=== PATIENT | female | born 1935 | race Caucasian/White ===

== ENCOUNTER 2017-10-22 08:00 | Outpatient (CLI) | payer MEDICARE | END 2017-10-22 08:01 | disposition home or self-care (01) | LOC: BICMAMMO 08:00 | PROVIDERS: ATTEND Obstetrics & Gynecology | DX: Z12.31 Encounter for screening mammogram for malignant neoplasm of breast (principal) | CPT/HCPCS: 77063; G0202; 77067 ==

== ENCOUNTER 2017-12-30 09:02 | Day surgery (SDC) | payer MEDICARE, BC ==
[2017-12-29 10:49] VITALS: BMI 18.8
--- NOTE | 2017-12-29 23:00 | HP ---
DATE OF ADMISSION: 12/30/2017 HISTORY OF PRESENT ILLNESS: This is an 82-year-old female with chronic acid reflux for man y years. The patient comes for abdominal pain, abdominal bloating and also history of dysphagia. Th e dysphagia is something new. She gets dysphagia to solid foods off and on. The food hangs in the e sophagus, and she has to drink water to make it go down. She has painful swallowing. No history of weight loss. The patient comes for an EGD, because of the dysphagia and also chronic dyspepsia. ALLERGIES: SULFA, PENICILLIN, CIPRO. MEDICAL ILLNESSES: 1. Hypertension. 2. Hyperlipidemia. 3. Atrial fibrillation. 4. Chronic acid reflux. PHYSICAL EXAMINATION: GENERAL: Patient is thin built, appears comfortable. VITAL SIGNS: Pulse is 70, blood pressure 120/70. HEENT: Conjunctivae clear. CARDIOVASCULAR AND LUNGS: Within normal limits. ABDOMEN: Soft to palpate. Abdomen is nontender. There is no organomegaly or masses. ADMITTING DIAGNOSES: Dysphagia, chronic dyspepsia. PLAN: EGD.
--- NOTE | 2017-12-30 11:47 | OP ---
DATE OF PROCEDURE: 12/30/2017 SURGEON: Autumn Newberry M.D. OPERATIVE PROCEDURE: 1. Esophagogastroduodenoscopy. 2. Several dilation with 50-[place] dilator. PREOPERATIVE DIAGNOSES: Chronic dyspepsia, dysphagia. POSTOPERATIVE DIAGNOSES: 1. No esophageal stricture seen. 2. Antral gastritis. 3. Otherwise, the exam is normal. PROCEDURE IN DETAIL: The patient was placed on her left lateral position and was given sedation by A nesthesia Department. A [employer]ax video gastroscope under direct vision was passed in the oropharynx to the GE junction, into the stomach and subsequently descending duodenum. The vocal cords appeared he althy. Although the patient complained of dysphagia, on endoscopy there is no definite narrowing see n. The GE junction, no pathology seen. Retroflexion of scope in the stomach failed to show any path ology in the fundus or cardia. The gastric body, no pathology seen. The gastric antrum shows gastri tis. The duodenal bulb, descending duodenum, no pathology seen. The patient had been on aspirin and Plavix, and the friable erythematous gastric and is mostly from the medication. The scope was remov ed. Because of history of dysphagia, it was elected to pass a 50-[place] dilator. It was adv anced without difficulty. DISCHARGE PLANNING: This is an 82-year-old female with chronic dyspepsia, chronic acid ref lux who came to the office because of dysphagia of recent onset. The EGD showed no esophageal narrow ing. She underwent an empiric dilation to 50-[place] dilator. DISCHARGE RECOMMENDATIONS: 1. Resume all medicines as before. 2. She is advised to call me, if she develops any abdominal pain, chest pain, fever, hematemesis. 3. To come back to clinic in 3 weeks.
== END 2017-12-30 12:10 | disposition home or self-care (01) ==
LOC: SDC 09:02
PROVIDERS: ATTEND Internal Medicine Gastroenterology
PROC: 0D758ZZ Dilation of Esophagus, Via Natural or Artificial Opening Endoscopic (ICD-10-PCS; principal; 2017-12-30)
DX: R13.10 Dysphagia, unspecified (principal); R10.13 Epigastric pain; K29.70 Gastritis, unspecified, without bleeding; K21.9 Gastro-esophageal reflux disease without esophagitis; I10 Essential (primary) hypertension; E78.5 Hyperlipidemia, unspecified; I48.91 Unspecified atrial fibrillation; K58.9 Irritable bowel syndrome, unspecified; Z79.82 Long term (current) use of aspirin; Z79.01 Long term (current) use of anticoagulants; Z79.899 Other long term (current) drug therapy; Z88.0 Allergy status to penicillin; Z88.1 Allergy status to other antibiotic agents; Z88.2 Allergy status to sulfonamides; Z88.8 Allergy status to other drugs, medicaments and biological substances; Z98.890 Other specified postprocedural states

== ENCOUNTER 2018-03-18 07:27 | Outpatient (CLI) | payer MEDICARE, BC ==
--- NOTE | 2018-03-18 10:24 | CT ---
CT OF THE ABDOMEN WITH AND WITHOUT IV CONTRAST: Date: )03/18/18 INDICATION: Epigastric abdominal pain with history of IBS, ulcers, and cholecystectomy. COMPARISON: Prior CT of the abdomen and pelvis dated 08/03/15 and 03/04/12. FINDINGS: Lung bases are clear. The cystic abnormality involving the pancreatic body is stable. There is stable slight prominence of the intrahepatic and extrahepatic biliary system, likely related to patient's post cholecystectomy state. The adrenal glands and kidneys are normal appearing. There are moderate calcifications involving the abdominopelvic vasculature. No focal hepatic lesion i s evident. There is diffuse osteopenia. There is scattered degenerative change. There is a small bone island within L3. There is slight levoscoliosis of the lumbar spine. IMPRESSION: 1. No acute abnormality demonstrated. 2. Small cystic abnormality within the pancreatic body, stable since 2011, suspicious for small panc reatic cyst or small cystadenoma. POS: ELLIS
[2018-03-18] MEDS ORDERED: Iopamidol 370 76% 100 ML VIAL ONE (10:59)
== END 2018-03-18 07:28 | disposition home or self-care (01) ==
LOC: CT 07:27
PROVIDERS: ATTEND Internal Medicine Gastroenterology
DX: R10.9 Unspecified abdominal pain (principal)
CPT/HCPCS: 74170; 82565

== ENCOUNTER 2019-09-06 11:00 | Inpatient (IN) | payer MEDICARE, BC ==
--- NOTE | 2019-09-15 23:28 | HP ---
HISTORY OF PRESENT ILLNESS: This is an 84-year-old female with findings of critical left internal carotid artery stenosis with CTA of the neck showing about 80% stenosis of the left internal carotid artery and about a 65% stenosis of the right internal carotid artery. She is being admitted on 09/16 for elective left carotid endarterectomy. She has been followed for several years with carotid ultrasonography and has demonstrated progression in her carotid artery disease with left internal carotid showing peak velocity of 240 cm/second with ICA/CCA ratio of greater than 5. PAST MEDICAL HISTORY: Includes hypertension, dyslipidemia, mild coronary artery disease, IBS, GERD, mitral valve prolapse. PAST SURGICAL HISTORY: Includes carpal tunnel surgery, trigger finger surgery, bilateral foot surgery, sinus surgery, atrial fibrillation ablation, left greater saphenous vein ablation. FAMILY HISTORY: Positive for stroke and cancer. SOCIAL HISTORY: The patient is a nonsmoker. 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 CURRENT MEDICATIONS: Include lorazepam 0.5 b.i.d., Cartia XT 240 a day, aspirin 81 a day, CoQ 200 a day, Crestor 5 b.i.d., Zantac 150 daily, vitamin D, and fiber supplements. ALLERGIES: SHE REPORTS ALLERGIES TO ATORVASTATIN, FENOFIBRATE, PENICILLIN, AND SULFA. REVIEW OF SYSTEMS: The patient admits some fatigue, but also admits weight loss. She has no chest pain or cough. No dyspnea. She has no claudication. She has no abdominal pain. She has no symptoms to suggest a previous TIA or stroke. PHYSICAL EXAMINATION: VITAL SIGNS: Height 5 feet 5 inches, weight 103 pounds. Blood pressure 160/80. GENERAL: She is an elderly female with no carotid bruits. CARDIAC: Regular rate and rhythm. No murmurs. LUNGS: Clear to auscultation. EXTREMITIES: Without edema, but with bilateral varicosities and palpable pulses are present. Left carotid endarterectomy and informed consent has been obtained. Job ID: [id number]
[2019-09-16] MEDS ORDERED: Fentanyl 100 MCG/2 ML VIAL ONE ×3 (06:34→12:04)
[2019-09-16] MEDS ORDERED: Midazolam HCl 2 mg/2 ml Vial ONE (06:34)
[2019-09-16] MEDS ORDERED: Heparin 5,000 UNITS/ML VIAL ONE (06:41)
[2019-09-16] MEDS ORDERED: Protamine Sulfate 50 MG/5 ML VIAL ONE (06:41)
[2019-09-16] MEDS ORDERED: Clindamycin/D5W 900 mg/50 ml Premix Bag ONE (07:17)
[2019-09-16] MEDS ORDERED: Ondansetron HCl/PF 4 MG/2 ML Vial IVP PRN (09:12)
[2019-09-16] MEDS ORDERED: PROPOFOL 200 MG/20 ML VIAL ONE (10:55)
[2019-09-16] MEDS ORDERED: Ketorolac Tromethamine 30 MG/ML VIAL ONE (10:55)
[2019-09-16] MEDS ORDERED: Dexamethasone 20 MG/5 ML VIAL ONE (10:55)
[2019-09-16] MEDS ORDERED: Labetalol HCl 100 MG/20 ML VIAL ONE (10:55)
[2019-09-16] MEDS ORDERED: Lidocaine 1% PF 5 ML VIAL ONE (10:55)
[2019-09-16] MEDS ORDERED: Glycopyrrolate 0.2 MG/ML 5 ML SYRINGE ONE (10:55)
[2019-09-16] MEDS ORDERED: Vecuronium 10 MG VIAL ONE (10:55)
[2019-09-16] MEDS ORDERED: Ondansetron PF 4 MG/2 ML Vial ONE (10:55)
[2019-09-16] MEDS ORDERED: Lorazepam 0.5 MG TAB PO PRN (12:47)
[2019-09-16] MEDS ORDERED: Acetaminophen 325 MG TAB PO PRN (12:47)
[2019-09-16] MEDS ORDERED: HYDROcodone/Acetaminophen 5/325 mg Tablet PO PRN ×2 (12:47)
[2019-09-16] MEDS ORDERED: Rosuvastatin 5 MG TAB PO SCH (12:47)
[2019-09-16] MEDS ORDERED: Nitroglycerin 50 MG/250 ML BOT 250 ML IVPB PRN (12:47)
[2019-09-16] MEDS ORDERED: Ondansetron PF 4 MG/2 ML Vial IVP PRN (12:47)
[2019-09-16] MEDS ORDERED: Fentanyl 100 MCG/2 ML VIAL SLOW IVP PRN (12:47)
[2019-09-16] MEDS ORDERED: Promethazine HCl 25 MG/ML VIAL IM PRN (12:47)
[2019-09-16] MEDS ORDERED: Sodium Chloride 0.9% 1,000 ML IV SCH (12:47)
[2019-09-16] MEDS ORDERED: Phenylephrine 10 MG/NS 250 ML 250 ML IVPB PRN (12:47)
[2019-09-16 13:10] VITALS: BMI 18.3
[2019-09-16] MEDS: Ibuprofen 800 MG TAB PO SCH ×2 (13:30→22:31)
--- NOTE | 2019-09-16 13:31 | OP ---
DATE OF PROCEDURE: 09/16/2019 PREOPERATIVE DIAGNOSIS: Critical left carotid stenosis. POSTOPERATIVE DIAGNOSIS: Critical left carotid stenosis. PROCEDURE PERFORMED: Left carotid endarterectomy with bovine patch angioplasty. ANESTHESIA: General. ESTIMATED BLOOD LOSS: Less than 100. DESCRIPTION OF PROCEDURE: After adequate anesthesia had been obtained, her head was turned to the right. Ultrasound performed and then she was prepped and draped. Incision was made in the neck, carried down to the carotid bulb and then dissected proximally and distally. Hypoglossal nerve and vagus nerve were not specifically identified. After 5000 units of heparin, then an additional 2000 with adequate ACT levels, clamps were applied, arteriotomy performed, and a 12-[place] shunt placed. A 14-Ethiopian shunt might have also been a choice, but 12-Ethiopian was chosen. Endarterectomy was then performed was nice tapering distally. The plaque was quite friable and the area was thoroughly irrigated on a number of occasions to ensure all loose debris was removed. Bovine patch was then used to close the arteriotomy imbricating the carotid artery slightly in the bulb area due to a wide bulb. Prior to completing the suture line, the vessels were backflushed and forward flushed and the area thoroughly irrigated after shunt removal and the suture line completed. Flow was then restored of the external and then internal carotid artery while 50 mg of protamine was given. Hemostasis was obtained. Following which, the wound was closed in layers and the patient was to be taken to the ICU in guarded condition. Job ID: [id number]
[2019-09-16 13:32] VITALS: BP 155/55
[2019-09-16] MEDS: Clindamycin/D5W 900 MG in Premix Bag 1 BAG IVPB SCH (17:15)
[2019-09-17] MEDS: Clindamycin/D5W 900 MG in Premix Bag 1 BAG IVPB SCH ×2 (00:14→05:39)
[2019-09-17] MEDS: Ibuprofen 800 MG TAB PO SCH (05:39)
[2019-09-17 07:40] VITALS: TEMP 98.6
--- NOTE | 2019-09-17 07:47 | DIS ---
DATE OF ADMISSION: 09/16/2019 DATE OF DISCHARGE: 09/17/2019 DIAGNOSIS: Left carotid stenosis. PROCEDURE PERFORMED: Left carotid endarterectomy. DESCRIPTION OF HOSPITAL STAY: Ms. Berrios was brought in for elective carotid endarterectomy. She has done well postoperatively. She is neurologically intact. Incision is clean and dry. Being discharged to home in good condition to follow up with Dr. Mireles in 2 weeks. DISCHARGE MEDICATIONS: Unchanged from admission regimen. Job ID: [id number]
[2019-09-17] MEDS ORDERED: Aspirin Chewable 81 MG TAB PO SCH (09:00)
== END 2019-09-17 09:15 | disposition home or self-care (01) | DRG 39 ==
LOC: SURG A 09-16 06:06 → CCU 09-16 12:25
PROVIDERS: ADMIT Thoracic Surgery (Cardiothoracic Vascular Surgery); ATTEND Thoracic Surgery (Cardiothoracic Vascular Surgery)
PROC: 03CL0ZZ Extirpation of Matter from Left Internal Carotid Artery, Open Approach (ICD-10-PCS; principal; 2019-09-16)
PROC: 03UL0KZ Supplement Left Internal Carotid Artery with Nonautologous Tissue Substitute, Open Approach (ICD-10-PCS; 2019-09-16)
DX: I65.22 Occlusion and stenosis of left carotid artery (principal); I10 Essential (primary) hypertension; E78.5 Hyperlipidemia, unspecified; I25.10 Atherosclerotic heart disease of native coronary artery without angina pectoris; K58.9 Irritable bowel syndrome, unspecified; K21.9 Gastro-esophageal reflux disease without esophagitis; I48.91 Unspecified atrial fibrillation; J30.2 Other seasonal allergic rhinitis; M19.90 Unspecified osteoarthritis, unspecified site; F41.9 Anxiety disorder, unspecified; Z79.82 Long term (current) use of aspirin; Z79.899 Other long term (current) drug therapy; Z88.0 Allergy status to penicillin; Z88.2 Allergy status to sulfonamides; Z88.8 Allergy status to other drugs, medicaments and biological substances; Z90.49 Acquired absence of other specified parts of digestive tract
CPT/HCPCS: 80048; 85027; 93005; J0131; J1100; J1642; J1644; J1885; J2001; J2250; J2405; J2704; J2720; J3010; J3490

== ENCOUNTER 2019-09-14 09:18 | Outpatient (CLI) | payer MEDICARE, BC ==
[2019-09-14 14:45] LABS: Hemoglobin 12.8 g/dL (12.0-16.0); Mean Corpuscular HGB CONC 32.7 g/dL (32.0-36.0); Mean Corpuscular Hemoglobin 31.4 pg (27.0-31.0); Mean Corpuscular Volume 95.7 fL (78.0-98.0); Mean Platelet Volume 6.9 fL (7.4-10.4); Platelet Count 173 thou/uL (130-400); RBC Distribution Width 11.5 % (11.5-14.5); Red Blood Cell (RBC) Count 4.08 mill/uL (4.20-5.40); White Blood Cell (WBC) Count 5.3 thou/uL (4.8-10.8)
[2019-09-14 15:10] LABS: Anion Gap 9 mmol/L (10-20); BUN (Urea Nitrogen) 12 mg/dL (9.8-20.1); Calc. Creatinine Clearance 0 mL/min (70-130); Calcium 9.3 mg/dL (7.8-10.44); Carbon Dioxide 29 mmol/L (23-31); Chloride 103 mmol/L (98-107); Estimated GFR-MDRD 58; Glucose 96 mg/dL (83-110); Potassium 4.2 mmol/L (3.5-5.1); Sodium 137 mmol/L (136-145)
== END 2019-09-14 09:19 | disposition home or self-care (01) ==
LOC: LABBT 09:18
PROVIDERS: ATTEND Thoracic Surgery (Cardiothoracic Vascular Surgery)
DX: Z01.818 Encounter for other preprocedural examination (principal); I65.29 Occlusion and stenosis of unspecified carotid artery
CPT/HCPCS: 80048; 85027; 93005; 93010